=== PATIENT | male | born 1970 | race Caucasian/White ===

== ENCOUNTER 2019-12-25 07:53 | Emergency (ER) | payer SELFPAY ==
[2019-12-25] MEDS ORDERED: Ibuprofen TAB* 600 MG PO ONE (08:10)
[2019-12-25] MEDS ORDERED: Acetaminophen TAB* 325 MG PO ONE (08:10)
--- NOTE | 2019-12-25 08:16 | ED ---
Upper Extremity Pain - HPI Summary HPI Summary: Patient is a 49 y/o M presenting to the ED for a chief complaint of left shoulder pain after a fall around 16:00 on 12/24/19. Patient states that he was at work when he tripped and fell, falling onto a machine and injuring his left shoulder. Since then, patient has had left shoulder pain and decreased ROM in the shoulder. He took 800 mg ibuprofen without relief. Patient denies any other injury. He denies edema or fever. The pain worsens with movement. No alleviating factors are reported. Any significant PMHx is denied. PSHx is significant for left shoulder arthroscopy and right knee arthroscopy. Patient denies tobacco or drug use, but admits alcohol use. Allergies noted. Medications reviewed. - History of Current Complaint Chief Complaint: EDShoulderClavicJovita Stated Complaint: SHOULDER PAIN PER PT Time Seen by Provider: 12/25/19 07:59 Hx Obtained From: Patient Mechanism Of Injury: Fall From A Standing Position Onset/Duration: Traumatic - Fall, Still Present Timing: Constant Severity Initially: Moderate Severity Currently: Moderate Pain Location: Shoulder - Left Aggravating Factor(s): Movement Alleviating Factor(s): Nothing Associated Signs & Symptoms: Negative: Swelling, Fever Related History: Occupational Injury - Allergies/Home Medications Allergies/Adverse Reactions: Allergies Allergy/AdvReac Type Severity Reaction Status Date / Time No Known Allergies Allergy Verified 10/12/14 13:50 PMH/Surg Hx/FS Hx/Imm Hx Previously Healthy: Yes Endocrine/Hematology History: Denies: Hx Diabetes Cardiovascular History: Denies: Hx Hypertension Sensory History: Denies: Hx Legally Blind, Hx Deafness Opthamlomology History: Denies: Hx Legally Blind EENT History: Denies: Hx Deafness - Surgical History Surgical History: Yes Surgery Procedure, Year, and Place: Left shoulder and right knee arthroscopy Infectious Disease History: No Infectious Disease History: Denies: Traveled Outside the [place] in Last 30 Days - Family History Known Family History: Negative: Respiratory Disease - Social History Occupation: Employed Full-time Lives: With Family Alcohol Use: Daily Hx Substance Use: No Substance Use Type: Reports: None Hx Tobacco Use: Yes Smoking Status (MU): Former Smoker Review of Systems Negative: Fever Positive: Arthralgia - Left shoulder, Decreased ROM - Left shoulder. Negative: Edema All Other Systems Reviewed And Are Negative: Yes Physical Exam - Summary Physical Exam Summary: Constitutional: Well-developed, Well-nourished, Alert. (-) Distressed Skin: Warm, Dry HENT: Normocephalic; Atraumatic Eyes: Conjunctiva normal Neck: Musculoskeletal ROM normal neck. (-) JVD, (-) Stridor, (-) Tracheal deviation Cardio: Rhythm regular, rate normal, Heart sounds normal; Intact distal pulses; Radial pulses are 2+ and symmetric. (-) Murmur Pulmonary/Chest wall: Effort normal. (-) Respiratory distress, (-) Wheezes, (-) Rales Abd: Soft, (-) tenderness, (-) Distension, (-) Guarding, (-) Rebound Musculoskeletal: (-) Edema. No bony tenderness, unable to adduct his arm at all , actively and passively abduct to 90 degrees. Lymph: (-) Cervical adenopathy Neuro: Alert, Oriented x3 Psych: Mood and affect Normal Triage Information Reviewed: Yes Vital Signs On Initial Exam: Initial Vitals Temp Pulse Resp BP Pulse Ox 97.0 F 83 18 143/98 95 12/25/19 07:55 12/25/19 07:55 12/25/19 07:55 12/25/19 07:55 12/25/19 07:55 Vital Signs Reviewed: Yes Procedures - Sedation Patient Received Moderate/Deep Sedation with Procedure: No Diagnostics - Vital Signs Vital Signs Temp Pulse Resp BP Pulse Ox 12/25/19 07:55 97.0 F 83 18 143/98 95 - Laboratory Lab Statement: Any lab studies that have been ordered have been reviewed, and results considered in the medical decision making process. - Radiology Shoulder X-ray Radiology Interpretation Completed By: Radiologist Summary of Radiographic Findings: Shoulder X-ray IMPRESSION: AC joint arthritis. Degenerative changes of the glenohumeral joint. Reviewed by Dr. Olivares. Course/Dx - Course Course Of Treatment: Patient is here after falling on his left shoulder. Patient is unable to abduct his shoulder. Patient had an x-ray performed which showed no acute abnormality. Patient is likely suffering from a rotator cuff injury. Patient is given orthopedic surgery for follow-up. Patient was offered a sling but declined as he has one at home and it made his symptoms worse. - Diagnoses Provider Diagnoses: Rotator cuff injury, Injury of left shoulder Discharge ED - Sign-Out/Discharge Documenting (check all that apply): Patient Departure - Discharge - Discharge Plan Condition: Stable Disposition: HOME Prescriptions: traMADol TAB* [Ultram*] 25 mg PO Q8H PRN #12 tab MDD 3 tablets PRN Reason: Pain - Severe Patient Education Materials: Rotator Cuff Injury (ED) Forms: *Work Release Referrals: Radha Corea [employer] [Primary Care Provider] - Dania Dobbs MD [Medical Doctor] - Additional Instructions: PLEASE RETURN TO EMERGENCY DEPARTMENT FOR ANY NEW OR WORSENING SYMPTOMS. Please follow up with your primary care physician. Please make all follow-ups in 1-3 days unless I advise you otherwise. Follow up with Dr. Dobbs, as you might need an MRI and/or surgery. Take Motrin and Tylenol for pain. Take your prescribed pain medication if needed, but not prior to working. - Billing Disposition and Condition Condition: STABLE Disposition: Home - Attestation Statements Document Initiated by Niurkaibe: Yes Documenting Scribe: Yashira Valadez Provider For Whom Denys is Documenting (Include Credential): Duran Olivares MD Scribe Attestation: Yashira Amador, scribed for Duran Olivares MD on 12/25/19 at 1833. Scribe Documentation Reviewed: Yes Provider Attestation: The documentation as recorded by the Yashira siddiqui accurately reflects the service I personally performed and the decisions made by me, Duran Olivares MD Status of Scribe Document: Viewed
[2019-12-25 09:42] VITALS: BP 129/89
== END 2019-12-25 09:40 | disposition home or self-care (01) ==
LOC: ED 07:53
DX: S49.92XA Unspecified injury of left shoulder and upper arm, initial encounter (principal); W01.198A Fall on same level from slipping, tripping and stumbling with subsequent striking against other object, initial encounter; Y93.89 Activity, other specified; Y92.9 Unspecified place or not applicable; Y99.0 Civilian activity done for income or pay; M19.012 Primary osteoarthritis, left shoulder; Z87.891 Personal history of nicotine dependence
CPT/HCPCS: 99282; A9270-GY

== ENCOUNTER 2022-07-14 10:23 | Observation (INO) ==
[~2022-07-14 10:23] MED LIST: Buffered Lidocaine 1% SYRIN 1 ml INTRADERM ONE; Lactated Ringers 1000 ml BAG 1,000 ML IV SCH; Naloxone 0.4 mg VIAL 0.4 mg/ml 1 ml VIAL IV PRN; Ondansetron 4 mg VIAL 2 MG/ML 2 ml VIAL IV PRN; fentaNYL 100 mcg/2 ml 50 MCG/ML VIAL IV PRN
[2022-07-14] MEDS ORDERED: ceFAZolin 2 GM in NS PREMIX 2 GM/100 ML BAG IVPB ONE (10:58)
[2022-07-14] MEDS ORDERED: Thrombin 5,000 UNITS 1 APPLIC KIT - topical use - TOPICAL ONE (12:28)
[2022-07-14] MEDS ORDERED: Lidocaine 1% w EPI 1:200,000 SDV 30 ML VIAL ONE (12:28)
[2022-07-14] MEDS ORDERED: Gelfoam Sponge SIZE 100 SPONGE ONE (12:28)
[2022-07-14] MEDS ORDERED: Propofol 10 MG/ML 20 ML BTL ONE (12:37)
[2022-07-14] MEDS ORDERED: Dexamethasone IV 4 MG/ML VIAL 1 ml VIAL ONE (12:37)
[2022-07-14] MEDS ORDERED: Midazolam 2 mg/2 ml VIAL 1 mg/ml 2 ml VIAL (2 mg) ONE (12:37)
[2022-07-14] MEDS ORDERED: Rocuronium 50 mg VIAL 10 mg/ml 5 ml VIAL (50 mg) ONE ×2 (12:37→14:28)
[2022-07-14] MEDS ORDERED: Lidocaine 2% PF 5 ML VIAL ONE (12:37)
[2022-07-14] MEDS ORDERED: Ondansetron 4 mg VIAL 2 MG/ML 2 ml VIAL ONE (12:37)
[2022-07-14] MEDS ORDERED: fentaNYL 250 mcg/5 ml 50 MCG/ML 5 ml VIAL (250 MCG) ONE (12:38)
[2022-07-14] MEDS ORDERED: Acetaminophen IV 1 GM/100ML 1,000 MG/100 ML BAG IV ONE (13:54)
[2022-07-14] MEDS ORDERED: Lactated Ringers 1000 ml BAG 1,000 ML IV SCH (15:00)
[2022-07-14] MEDS ORDERED: Morphine 2 MG/ML SYRINGE IV PRN (15:01)
[2022-07-14] MEDS ORDERED: Albuterol HFA INHALER 8 gm MDI INH PRN (15:01)
[2022-07-14] MEDS ORDERED: Senna TAB 8.6 mg TAB PO PRN (15:01)
[2022-07-14] MEDS ORDERED: HYDROcodone/ACETAMIN 5/325 mg TAB ONE (16:19)
[2022-07-14] MEDS: HYDROcodone/ACETAMIN 5/325 mg TAB PO PRN ×2 (16:26→21:08)
[2022-07-14] MEDS ORDERED: Mometasone 220 MCG MDI INH SCH (19:00)
[2022-07-14] MEDS ORDERED: TADALAFIL 5 MG PO SCH (21:00)
[2022-07-15 07:37] VITALS: BP 120/73
[2022-07-15] MEDS: HYDROcodone/ACETAMIN 5/325 mg TAB PO PRN (10:09)
== END 2022-07-15 12:05 | disposition home or self-care (01) ==
LOC: SSU 10:23 → OR 10:23
PROVIDERS: ADMIT Neurological Surgery; ATTEND Neurological Surgery